=== PATIENT | female | born 1970 | race Caucasian/White ===

== ENCOUNTER 2019-10-12 13:18 | Emergency (ER) | payer BC ==
[2019-10-12] MEDS ORDERED: LORazepam 0.5 MG TABLET SL STA (14:44)
[2019-10-12] MEDS ORDERED: HYDROmorphone 1 MG/ML CARPUJECT IM STA (14:44)
--- NOTE | 2019-10-12 14:47 | ED Physician Documentation ---
PD HPI LOWER EXT INJURY - Stated complaint Stated Complaint: LT LEG PX - Chief complaint Chief Complaint: Ext Problem - History obtained from History obtained from: Patient (49-year-old woman with history of lung cancer twice and breast cancer once, currently only on tamoxifen. She developed left leg pain today that started in the groin and slowly made its way down the leg. It is excruciating. It is nothing she is ever had before. She tried some ooqt-lcw-ckeusic remedies without relief. She denies back pain or weakness or numbness in that leg. No incontinence or saddle anesthesia. 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, Mastectomy Cardiovascular: Lobectomy, Other - Present Medications Home Medications: Ambulatory Orders Medication Instructions Recorded Confirmed Meloxicam [Mobic] 7.5 mg PO BID PRN #20 tablet 10/12/19 Tamoxifen [(None)] 20 mg PO DAILY 10/12/19 10/12/19 predniSONE [Deltasone] 20 mg PO [id number] #21 tab 10/12/19 - Allergies Allergies/Adverse Reactions: Allergies Allergy/AdvReac Type Severity Reaction Status Date / Time oxycodone Allergy Nausea Verified 10/12/19 13:31 prochlorperazine Allergy Anaphylaxis Verified 10/12/19 13:31 [From Compazine] Tetanus Vaccines and Toxoid Allergy Anaphylaxis Verified 10/12/19 13:31 - Social History Does the pt smoke?: No Smoking Status: Never smoker Does the pt drink ETOH?: Yes - Immunizations Immunizations are current?: Yes PD ED PE NORMAL - Vitals Vital signs reviewed: Yes - General General: Alert and oriented X 3, Other (She appears restless, she is pacing. She says it is more comfortable for her to walk then it is to sit down.) - HEENT HEENT: PERRL, EOMI - Abdomen Abdomen: Normal bowel sounds, Soft, Non tender - Back Back: No CVA TTP, No spinal TTP - Derm Derm: Normal color, Warm and dry - Extremities Extremities: Other (No visible swelling erythema or warmth of the left lower extremity. She is able to walk and bear weight on it. Unable to check reflexes because she cannot sit down. Sensation in lower extremities is symmetric.) - Neuro Neuro: Alert and oriented X 3, Normal speech Results - Vitals Vitals: Vital Signs - 24 hr 10/12/19 10/12/19 13:26 16:15 Temperature 36.7 C Heart Rate 108 H 101 H Respiratory 18 20 Rate Blood Pressure 133/96 H 126/80 O2 Saturation 98 96 Oxygen O2 Source Room air - Labs Labs: Laboratory Tests 10/12/19 10/12/19 14:55 14:55 WBC 8.7 RBC 4.23 Hgb 12.8 Hct 40.4 MCV 95.5 MCH 30.3 MCHC 31.7 L RDW 13.4 Plt Count 249 MPV 10.3 Neut # (Auto) 6.6 Lymph # (Auto) 1.4 L Chaves # (Auto) 0.6 Eos # (Auto) 0.0 Baso # (Auto) 0.1 Absolute Nucleated RBC 0.00 Nucleated RBC % 0.0 Sodium 140 Potassium 3.8 Chloride 107 Carbon Dioxide 23 Anion Gap 10.0 BUN 22 H Creatinine 0.6 Estimated GFR (MDRD) 107 Glucose 110 H Calcium 9.6 Total Bilirubin 0.4 AST 17 ALT 19 Alkaline Phosphatase 38 L Total Protein 7.6 Albumin 4.2 Globulin 3.4 Albumin/Globulin Ratio 1.2 Lipase 29 PD MEDICAL DECISION MAKING - ED course ED course: 49-year-old woman with left leg pain, cancer history. She felt much more comfortable after Dilaudid although she did have some nausea afterwards imaging included DVTs ultrasound, hip x-ray, and lumbar spine x-ray. The only abnormalities were disc bulges in the lumbar spine which could be causative. We will trial some steroids. There is no evidence of infection. Departure - Departure Disposition: 01 Home, Self Care Clinical Impression: Bulging lumbar disc Pain of lower extremity Qualifiers: Laterality: left Qualified Code(s): M79.605 - Pain in left leg Condition: Good Record reviewed to determine appropriate education?: Yes Instructions: ED Sciatica Prescriptions: Meloxicam [Mobic] 7.5 mg PO BID PRN #20 tablet PRN Reason: Pain predniSONE [Deltasone] 20 mg PO [id number] #21 tab Comments: Return if you develop new or worsening symptoms, especially fever, inability to walk, or anything else that concerns you. Try to follow-up with your primary care physician, next available appointment.
[2019-10-12 15:05] LABS: BASOPHILS # (AUTO) 0.1 10^3/uL (0.0-0.1); BASOPHILS % (AUTO) 0.6 %; EOSINOPHILS % (AUTO) 0.5 %; HGB - HEMOGLOBIN 12.8 g/dL (12.0-16.0); LYMPHOCYTES # (AUTO) 1.4 10^3/uL (1.5-3.5); LYMPHOCYTES % (AUTO) 15.7 %; MEAN CORPUSCULAR HEMOGLOBIN 30.3 pg (27.0-31.0); MEAN CORPUSCULAR HGB CONC 31.7 g/dL (32.0-36.0); MEAN CORPUSCULAR VOLUME 95.5 fL (81.0-99.0); MEAN PLATELET VOLUME 10.3 fL (7.9-10.8); MONOCYTES # (AUTO) 0.6 10^3/uL (0.0-1.0); MONOCYTES % (AUTO) 7.2 %; NEUTROPHILS # (AUTO) 6.6 10^3/uL (1.5-6.6); NEUTROPHILS % (AUTO) 75.5 %; PLT - PLATELET COUNT 249 10^3/uL (130-450); RED BLOOD COUNT 4.23 10^6/uL (4.20-5.40); RED CELL DISTRIBUTION WIDTH 13.4 % (12.0-15.0); WHITE BLOOD COUNT 8.7 x10^3/uL (4.8-10.8)
[2019-10-12 15:19] LABS: ALBUMIN 4.2 g/dL (3.2-5.5); ALBUMIN/GLOBULIN RATIO 1.2 (1.0-2.2); BILIRUBIN,TOTAL 0.4 mg/dL (0.2-1.0); CALCIUM 9.6 mg/dL (8.5-10.3); CREATININE 0.6 mg/dL (0.4-1.0); TOTAL PROTEIN 7.6 g/dL (6.7-8.2)
--- NOTE | 2019-10-12 16:08 | Ultrasound Report ---
Reason: LLE pain, CA hx Procedure Date: 10/12/2019 Accession Number: [id number] / [id number] Procedure: US - Duplex Ext Veins Left CPT Code: Final Report FULL RESULT: EXAM: LEFT LOWER EXTREMITY VENOUS ULTRASOUND EXAM DATE: 10/12/2019 03:48 PM. CLINICAL HISTORY: Left lower extremity pain. History of breast cancer x3. COMPARISON: None. TECHNIQUE: Real-time sonographic vascular imaging was performed by the burning supervisor through the lower extremity utilizing both color-flow and Doppler spectral analysis. Multiple customer retention representative static images were saved for review. FINDINGS: Common Femoral Vein (CFV): Normal. CFV-GSV Junction: Normal. Profunda Femoral Vein (PFV): Normal. Femoral Vein (FV) Prox: Normal. Femoral Vein (FV) Mid: Normal. Femoral Vein (FV) Dist: Normal. Popliteal Vein: Normal. Posterior Tibial Veins: Limited visualization. No thrombus seen. Peroneal Veins: Limited visualization. No thrombus seen. Other: None. IMPRESSION: Limited visualization of the calf veins. No evidence for deep venous thrombosis. RAD[facility]
[2019-10-12] MEDS ORDERED: ONDANSETRON ODT 4 MG TABLET TL STA (16:19)
--- NOTE | 2019-10-12 16:29 | CT Report ---
Reason: LLE pain c/w sciatica, CA Hx Procedure Date: 10/12/2019 Accession Number: [id number] / [id number] Procedure: CT - LUMBAR SPINE WO CPT Code: Final Report FULL RESULT: EXAM: CT LUMBAR SPINE WITHOUT CONTRAST EXAM DATE: 10/12/2019 03:54 PM. CLINICAL HISTORY: Left lower extremity pain with sciatica. History of cancer. COMPARISONS: None. TECHNIQUE: Thin-section axial images were acquired of the lumbar spine from T12 to S1 without contrast. Post-processing: Coronal and sagittal reformats. Other: None. In accordance with CT protocol optimization, one or more of the following dose reduction techniques were utilized for this exam: automated exposure control, adjustment of mA and/or KV based on patient size, or use of iterative reconstructive technique. FINDINGS: Alignment: No scoliosis or spondylolisthesis. Bones: Five hyb-kvw-cewaoqb lumbar vertebral bodies are present. No fractures or bone lesions. Disk Levels/Facets: T12-L1: Unremarkable. L1-L2: Unremarkable. L2-L3: Unremarkable. L3-L4: Mild disk height loss. Broad-based disk bulge without significant bony central canal stenosis or neural foraminal narrowing. L4-L5: Mild broad-based disk bulge causing anterior indentation of the thecal sac. No significant bony neural foraminal narrowing. L5-S1: Unremarkable. Other: Cholelithiasis. Trace atherosclerotic calcifications within the aorta. The visualized abdominal and pelvic contents are otherwise unremarkable. IMPRESSION: 1. Mild degenerative changes at L3-L4 and L4-L5. 2. No acute bony abnormality. RADIA
--- NOTE | 2019-10-12 16:39 | XRAY Report ---
Reason: L Hip pain, CA HX Procedure Date: 10/12/2019 Accession Number: [id number] / [id number] Procedure: XR - Hip w/Pelvis 2-3V LT CPT Code: Final Report FULL RESULT: EXAM: LEFT HIP RADIOGRAPHY EXAM DATE: 10/12/2019 04:01 PM. CLINICAL HISTORY: Left hip pain, History of cancer. COMPARISON: None. TECHNIQUE: 2 views. FINDINGS: Bones: Normal. No fractures or bone lesion. Joints: Joint space and alignment appear satisfactory. Soft Tissues: No dilated bowel. IMPRESSION: No radiographic abnormality to explain left hip pain. RADIA
[2019-10-12] MEDS ORDERED: DEXAMETHASONE 10 MG/ML VIAL PO STA (17:07)
[2019-10-12] MEDS ORDERED: CHERRY SYRUP 10 ML UDC PO ONE (17:07)
[2019-10-12 17:10] VITALS: BP 119/73
== END 2019-10-12 17:24 | disposition home or self-care (01) ==
LOC: ED 13:18
DX: M51.86 Other intervertebral disc disorders, lumbar region (principal); M79.605 Pain in left leg; Z85.3 Personal history of malignant neoplasm of breast; Z85.118 Personal history of other malignant neoplasm of bronchus and lung
CPT/HCPCS: 36415; 72131; 73502; 80053; 83690; 85025; 93971; 96372; 99284; A9270; J1170; Q0162